=== PATIENT | male | born 1960 | race Caucasian/White ===

== ENCOUNTER 2018-06-06 14:34 | Emergency (ER) | payer OTHER ==
[~2018-06-06] VITALS: Ht 172.7 cm; Wt 74.8 kg
[2018-06-06] MEDS ORDERED: LOSARTAN POTASS50 MG (14:50)
[2018-06-06] MEDS ORDERED: SIMVASTATIN10 MG (14:51)
== END 2018-06-06 20:19 | disposition home or self-care (01) ==
LOC: ER 14:34
DX: N39.0 Urinary tract infection, site not specified (principal); B96.29 Other Escherichia coli [E. coli] as the cause of diseases classified elsewhere